=== PATIENT | female | born 1955 | race Native Hawaiian/Other Pacific Islander ===

== ENCOUNTER 2022-08-31 18:40 | Inpatient (IN) | payer MEDICARE, OTHER ==
[~2022-08-31] VITALS: Ht 157.5 cm; Wt 46.7 kg
[~2022-08-31 18:40] MED LIST: FLUT16SP16 NS; FLUT1DIS27 IH; PANT40TA2 PO; ZOLP5TAB2 PO
[2022-08-31] MEDS ORDERED: methylPREDNISolone SOD SUCC 125 MG/2 ML VIAL IV ONE (19:15)
[2022-08-31] MEDS ORDERED: FAMOTIDINE. 20 MG/2 ML VIAL IV ONE ×2 (19:15→19:48)
--- NOTE | 2022-08-31 19:22 | NUR ---
After being triaged, patient was placed on chair in hallway of ER due to no rooms available in the ER.
[2022-08-31 19:34] LABS: HEMATOCRIT 34.7 % (31.2-41.9); MEAN CORPUSCULAR HEMOGLOBIN 31.2 uug (24.7-32.8); MEAN CORPUSCULAR VOLUME 95.1 fL (75.5-95.3); PLATELET COUNT (AUTO) 307 K/uL (179-408)
[2022-08-31] MEDS ORDERED: methylPREDNISolone SOD SUCC 125 MG/2 ML VIAL ONE (19:47)
[2022-08-31 19:48] LABS: POTASSIUM 4.4 mmol/L (3.5-5.1)
[2022-08-31 19:53] LABS: BILIRUBIN,DIRECT 0.1 mg/dL (0.0-0.2); BILIRUBIN,TOTAL 0.2 mg/dL (0.2-1.0); TOTAL PROTEIN, SERUM 7.6 g/dL (6.4-8.2)
[2022-08-31] MEDS ORDERED: GABA-532 PO (21:55)
[2022-08-31] MEDS ORDERED: FLUT1DIS29 IH (22:08)
[2022-08-31] MEDS ORDERED: UMEC62.5 IH (22:08)
[2022-08-31] MEDS ORDERED: OLME40TA12 PO (22:08)
[2022-08-31] MEDS ORDERED: FURO20TA4 PO (22:08)
[2022-08-31] MEDS ORDERED: ATOR40TA PO (22:08)
[2022-08-31] MEDS ORDERED: ESOM40CA PO (22:08)
[2022-08-31] MEDS ORDERED: SODIUM CHLORIDE PO (22:08)
[2022-08-31] MEDS ORDERED: ZOLP5TAB2 PO (22:10)
--- NOTE | 2022-08-31 22:10 | NUR ---
Patient sitting on chair by triaged area due to no rooms available in the ER. No distress noted. Denies CP and SOB.
[2022-09-01] MEDS ORDERED: ACETAMINOPHEN 325 MG TABLET PO PRN (00:30)
[2022-09-01] MEDS ORDERED: ONDANSETRON 4 MG/2 ML VIAL IV PRN (00:30)
[2022-09-01] MEDS ORDERED: MAGNESIUM HYDROXIDE 30 ML LIQUID UDC PO PRN (00:30)
[2022-09-01] MEDS ORDERED: ALBUTEROL SULFATE 2.5 MG/ 0.5 ML NEBU NEB PRN (00:45)
[2022-09-01] MEDS ORDERED: diphenhydrAMINE 25 MG CAP PO PRN (01:30)
--- NOTE | 2022-09-01 02:17 | NUR ---
Transfered to 3rd floor via wheelchair with no distress noted.
[2022-09-01 03:07] VITALS: BP 152/90
--- NOTE | 2022-09-01 03:37 | NUR ---
Received a 67 yr old female admitted for angioedema. Has allergic reactions to her medicine (benicar) which she is on for a month. Hx of Lung Ca, Asthma, HTN, GERD, Restless legf syndrome, and gallbladder surgery in the past. On telemetry patient sinus rhthym HR 90's . Denies any pain nor any discomfort. AAOx4 VSS. Left arm heplock intact. Independent with ADL's Lip was swollen upon admission. Was treated with solumedrol in ER. Lips resolved. No more hives or any reaction noted. Lung CTA. Continent of bowel and bladder. Last BM 08/31. Will monitor patient.
[2022-09-01] MEDS ORDERED: PANTOPRAZOLE SODIUM 40 MG TABLET.DR PO SCH (07:00)
[2022-09-01 08:10] VITALS: BP 140/90
[2022-09-01] MEDS ORDERED: GABAPENTIN 100 MG CAPSULE PO SCH (09:00)
[2022-09-01] MEDS ORDERED: FAMOTIDINE 20 MG TABLET PO SCH (09:00)
[2022-09-01] MEDS ORDERED: SODIUM CHLORIDE 1,000 MG TABLET PO SCH (09:00)
[2022-09-01] MEDS ORDERED: FUROSEMIDE 20 MG TABLET PO SCH (09:00)
[2022-09-01] MEDS ORDERED: methylPREDNISolone SOD SUCC 40 MG/ML VIAL IV SCH (09:00)
[2022-09-01] MEDS ORDERED: FLUTICASONE/VILANTEROL 1 EACH BLST.W.DEV INH SCH (10:30)
[2022-09-01] MEDS ORDERED: ALBU2.5V13 NEB (11:15)
[2022-09-01] MEDS ORDERED: DIPH25CA49 PO (11:15)
[2022-09-01] MEDS ORDERED: PRED20TA PO (11:15)
[2022-09-01] MEDS ORDERED: FAMO20TA8 PO (11:15)
[2022-09-01] MEDS ORDERED: FLUT1BLS INH (11:15)
[2022-09-01 12:00] VITALS: BP 141/85
--- NOTE | 2022-09-01 12:58 | NUR ---
Pt is a/ox 4, no signs of swelling, no complaints of pain or SOB. Plan is to discharge pt home today. All discharge education provided for patient, all materials provided. All medications sent electronically to pt's preferred pharmacy. IV and ID bands removed. All personal belongings signed for, waiting for to pick her up around 1330.
--- NOTE | 2022-09-01 13:18 | NUR ---
Pt has been discharged and wheeled down to private car.
[2022-09-01] MEDS ORDERED: ATORVASTATIN 40 MG TABLET PO SCH (21:00)
== END 2022-09-01 13:15 | disposition home or self-care (01) | DRG 916 ==
LOC: ER 18:40 → TELE3 09-01 00:36
PROVIDERS: ADMIT Nurse Practitioner Acute Care; ATTEND Nurse Practitioner Acute Care
DX: T78.3XXA Angioneurotic edema, initial encounter (principal); T46.5X5A Adverse effect of other antihypertensive drugs, initial encounter; I10 Essential (primary) hypertension; Z85.118 Personal history of other malignant neoplasm of bronchus and lung; Z87.891 Personal history of nicotine dependence; Y92.009 Unspecified place in unspecified non-institutional (private) residence as the place of occurrence of the external cause; J45.909 Unspecified asthma, uncomplicated; L29.9 Pruritus, unspecified; Z20.822 Contact with and (suspected) exposure to COVID-19
CPT/HCPCS: 36415; 85025; 86850; 86900; 86901; 93005; A4663; G0378; J2920; J2930; J3490; Q0163